=== PATIENT | male | born 1975 | race Caucasian/White ===

== ENCOUNTER 2022-04-13 13:51 | Emergency (ER) | payer SELFPAY ==
[~2022-04-13] VITALS: Ht 170.2 cm; Wt 68.0 kg
[2022-04-13 18:11] VITALS: BP 133/75
== END 2022-04-13 18:10 | disposition home or self-care (01) ==
LOC: ER 13:51
DX: R41.82 Altered mental status, unspecified (principal); R45.1 Restlessness and agitation
CPT/HCPCS: A4663